=== PATIENT | male | born 1965 | race Caucasian/White ===

== ENCOUNTER → 2019-03-12 | Outpatient (CLI) | payer SELFPAY ==
--- NOTE | 2019-03-13 14:15 | CT ---
EXAM DESCRIPTION: Cardiac Calcium Scoring Screen: Computed Tomography. CLINICAL HISTORY: Coronary Artery Calcium Scoring COMPARISON: Echocardiography on the same visit. TECHNIQUE: Spiral-axial scans at 2.5 x 0.4 mm intervals through the coronary arteries without IV contrast. Special algorithm was used, and cardiac gating. No reconstructions. Total Exam DLP: Not recorded . This exam was performed according to our departmental CT dose-optimization program which includes automated exposure control, adjustment of the mA and/or kV according to patient size and/or use of iterative reconstruction technique; to reduce radiation dose to as low as reasonably achievable (ALARA). Some images may have been skipped or repeated due to the heart rhythm or respiration. FINDINGS: The patient has a total Agatston calcium score of 0. This places the patient in the 0 percentile in comparison to a group of patients asymptomatic for coronary artery disease with the same age and gender. This means that no males, ages 51-55 have calcium scores lower than the patient. The included mediastinum, bilateral fransisco, and included erica-hilar lung are unremarkable.. IMPRESSION: 1. Total coronary artery calcium score of 0. 0 percentile for age and gender. 2. The included mediastinum, lung, and erica-hilar areas are unremarkable. Electronically signed by: Gene Maurer MD 03/13/2019 2:13 PM CDT
== END ==
LOC: CT 15:07
PROVIDERS: ATTEND Internal Medicine
DX: R06.02 Shortness of breath (principal)